=== PATIENT | male | born 1995 | race Caucasian/White ===

== ENCOUNTER 2019-06-09 05:25 | Emergency (ER) | payer SELFPAY ==
[~2019-06-09] VITALS: Ht 175.3 cm; Wt 66.0 kg
[2019-06-09 10:17] VITALS: BP 108/78
== END 2019-06-09 10:18 | disposition home or self-care (01) ==
LOC: ER 05:25
DX: F10.129 Alcohol abuse with intoxication, unspecified (principal); Y90.0 Blood alcohol level of less than 20 mg/100 ml; F17.290 Nicotine dependence, other tobacco product, uncomplicated
CPT/HCPCS: 99283; 99406